=== PATIENT | female | born 1935 | race Caucasian/White ===

== ENCOUNTER 2019-08-12 12:34 | Emergency (ER) | payer BC, MEDICARE ==
[~2019-08-12] VITALS: Ht 170.2 cm; Wt 62.0 kg
[2019-08-12 12:44] VITALS: BP 153/69
[2019-08-12] MEDS ORDERED: normal saline 1000ML IV soln IVB ONE (13:25)
[2019-08-12 14:38] LABS: BASOPHILS # (AUTO) 0.1 X10'3 (0-0.2); BASOPHILS % (AUTO) 0.9 % (0-1); EOSINOPHILS # (AUTO) 0.1 X10'3 (0-0.9); EOSINOPHILS % (AUTO) 1.5 % (0-6); HEMATOCRIT 38.2 % (35.0-45.0); HEMOGLOBIN 12.8 g/dl (12.0-16.0); LYMPHOCYTES % (AUTO) 10.2 % (21-51); MEAN CORPUSCULAR HEMOGLOBIN 32.4 PG (27.0-31.0); MEAN CORPUSCULAR HGB CONC 33.6 g/dL (33.0-36.5); MEAN CORPUSCULAR VOLUME 96.6 FL (78-98); MEAN PLATELET VOLUME 8.8 FL (7.4-10.4); MONOCYTES # (AUTO) 0.7 X10'3 (0-0.9); MONOCYTES % (AUTO) 6.9 % (2-12); NEUTROPHILS # (AUTO) 7.9 X10'3 (1.8-7.7); NEUTROPHILS % (AUTO) 80.5 % (42-75); PLATELET COUNT 280 X10'3 (140-440); RED BLOOD COUNT 3.95 X10'6 (4.20-5.60); RED CELL DISTRIBUTION WIDTH 13.6 % (11.5-14.5); WHITE BLOOD COUNT 9.8 X10'3 (4.5-11.0)
[2019-08-12 14:46] LABS: CLARITY,URINE SLIGHTLY CLOUDY (Clear); COLOR,URINE YELLOW (Yellow); GLUCOSE, URINE NEGATIVE (Neg); KETONES,URINE 40 mg/dl (Neg); LEUKOCYTE ESTERASE ,URINE TRACE (Neg); NITRITES, URINE POSITIVE (Neg); OCCULT BLOOD,URINE NEGATIVE (Neg); PH,URINE 6.5 (4.8-8.0); PROTEIN,URINE NEGATIVE (Neg)
[2019-08-12 14:50] LABS: UA COLLECTION TYPE STRAIGHT CATH
[2019-08-12 14:51] LABS: ALANINE AMINOTRANSFERASE 18 U/L (12-78); ALBUMIN 3.3 G/DL (3.4-5.0); ALBUMIN/GLOBULIN RATIO 0.9 (1.1-1.5); ALKALINE PHOSPHATASE 70 IU/L (46-116); ANION GAP 11 (8-16); ASPARTATE AMINO TRANSFERASE 15 U/L (10-37); BILIRUBIN,TOTAL 0.7 MG/DL (0.1-1.0); BLOOD UREA NITROGEN 24 MG/DL (7-18); BUN/CREATININE RATIO 21.4 (6.6-38.0); CHLORIDE 107 MMOL/L (99-107); CREATININE 1.12 MG/DL (0.40-0.90); GLUCOSE 72 MG/DL (70-104); POTASSIUM 3.7 MMOL/L (3.5-5.1); SODIUM 145 MMOL/L (135-145); TOTAL CARBON DIOXIDE 26.6 MMOL/L (24-32); TOTAL PROTEIN 6.9 G/DL (6.4-8.2); eGFR 46 ML/MIN
[2019-08-12 14:53] LABS: CALCIUM 12.1 MG/DL (8.5-10.1); MUCUS STRANDS MANY /LPF (Neg); SQUAMOUS EPITHELIAL CELL,UR MANY /LPF (FEW)
[2019-08-12 14:54] LABS: TRANSITIONAL EPI CELLS,URINE FEW /HPF
[2019-08-12 14:55] LABS: RBC,URINE 0-2 /HPF (0-2)
[2019-08-12 14:56] LABS: AMORPHOUS URATES 1+; BACTERIA,URINE 3+ /HPF (Neg); WBC CLUMPS,URINE FEW /HPF (NEGATIVE)
[2019-08-12] MEDS ORDERED: CEPH250T PO (14:57)
--- NOTE | 2019-08-12 15:06 | NUR ---
contacting [facility] for transport to [facility].
== END 2019-08-12 16:51 ==
LOC: ER 12:34
DX: N39.0 Urinary tract infection, site not specified (principal); E86.0 Dehydration; R41.82 Altered mental status, unspecified; F31.9 Bipolar disorder, unspecified; Z79.899 Other long term (current) drug therapy
CPT/HCPCS: 36415; 80053; 81001; 85025; 87088; 96360; 96361; 99284; J7030; 87077; 87186

== ENCOUNTER 2019-08-16 15:08 | Inpatient (IN) | payer BC ==
[~2019-08-16] VITALS: Ht 165.1 cm; Wt 65.0 kg
[~2019-08-16 15:08] MED LIST: CEPH250T PO
[2019-08-16] MEDS ORDERED: morphine 4 MG/ML inj SYRINge IV ONE (15:15)
[2019-08-16 15:49] LABS: BASOPHILS # (AUTO) 0.1 X10'3 (0-0.2); BASOPHILS % (AUTO) 0.4 % (0-1); EOSINOPHILS # (AUTO) 0.3 X10'3 (0-0.9); EOSINOPHILS % (AUTO) 1.9 % (0-6); HEMOGLOBIN 12.7 g/dl (12.0-16.0); LYMPHOCYTES # (AUTO) 0.8 X10'3 (1.1-4.8); LYMPHOCYTES % (AUTO) 5.6 % (21-51); MEAN CORPUSCULAR HEMOGLOBIN 31.6 PG (27.0-31.0); MEAN CORPUSCULAR HGB CONC 33.3 g/dL (33.0-36.5); MEAN CORPUSCULAR VOLUME 94.9 FL (78-98); MEAN PLATELET VOLUME 9.3 FL (7.4-10.4); MONOCYTES # (AUTO) 1.1 X10'3 (0-0.9); MONOCYTES % (AUTO) 7.5 % (2-12); NEUTROPHILS # (AUTO) 11.9 X10'3 (1.8-7.7); NEUTROPHILS % (AUTO) 84.6 % (42-75); PLATELET COUNT 218 X10'3 (140-440); RED BLOOD COUNT 4.01 X10'6 (4.20-5.60); RED CELL DISTRIBUTION WIDTH 13.9 % (11.5-14.5); WHITE BLOOD COUNT 14.1 X10'3 (4.5-11.0)
[2019-08-16 16:06] LABS: ALANINE AMINOTRANSFERASE 24 U/L (12-78); ALBUMIN 3.1 G/DL (3.4-5.0); ALBUMIN/GLOBULIN RATIO 0.9 (1.1-1.5); ALKALINE PHOSPHATASE 73 IU/L (46-116); ANION GAP 6 (8-16); ASPARTATE AMINO TRANSFERASE 16 U/L (10-37); BILIRUBIN,TOTAL 0.7 MG/DL (0.1-1.0); BLOOD UREA NITROGEN 17 MG/DL (7-18); BUN/CREATININE RATIO 18.3 (6.6-38.0); CALCIUM 11.6 MG/DL (8.5-10.1); CHLORIDE 111 MMOL/L (99-107); CREATININE 0.93 MG/DL (0.40-0.90); GLUCOSE 135 MG/DL (70-104); POTASSIUM 3.3 MMOL/L (3.5-5.1); SODIUM 147 MMOL/L (135-145); TOTAL CARBON DIOXIDE 30.1 MMOL/L (24-32); TOTAL PROTEIN 6.6 G/DL (6.4-8.2); eGFR 57 ML/MIN
[2019-08-16] MEDS ORDERED: CITA40TA17 PO (16:44)
[2019-08-16] MEDS ORDERED: LOSA100T57 PO (16:44)
[2019-08-16] MEDS ORDERED: TRAZ-256 PO (16:44)
[2019-08-16] MEDS ORDERED: AMLO5TAB16 PO (16:44)
[2019-08-16] MEDS ORDERED: OMEP40CA13 PO (16:44)
[2019-08-16] MEDS ORDERED: HYDR25TA4 PO (16:44)
[2019-08-16] MEDS ORDERED: PROP10TA10 PO (16:44)
[2019-08-16] MEDS ORDERED: RIVA20TA PO (16:44)
[2019-08-16] MEDS ORDERED: POTA10TA10 PO (16:44)
[2019-08-16] MEDS ORDERED: morphine 2 MG/ML inj. syringe IV PRN (17:15)
[2019-08-16] MEDS ORDERED: normal saline 1000ml 1,000 ML IV SCH (17:15)
[2019-08-16] MEDS ORDERED: magnesium hydroxide 30ml (MOM) UD suspension PO PRN (17:15)
[2019-08-16] MEDS ORDERED: ondansetron/PF 4mg/2ml inj IV PRN (17:15)
[2019-08-16] MEDS ORDERED: mag hydrox/Alum hydrox/simeth 30ml oral suspension PO PRN (17:15)
[2019-08-16] MEDS ORDERED: acetaminophen 325mg tablet PO PRN (17:15)
[2019-08-16 17:59] LABS: CLARITY,URINE SLIGHTLY CLOUDY (Clear); COLOR,URINE YELLOW (Yellow); GLUCOSE, URINE NEGATIVE (Neg); KETONES,URINE NEGATIVE (Neg); LEUKOCYTE ESTERASE ,URINE NEGATIVE (Neg); NITRITES, URINE POSITIVE (Neg); OCCULT BLOOD,URINE NEGATIVE (Neg); PROTEIN,URINE NEGATIVE (Neg)
[2019-08-16 18:04] LABS: UA COLLECTION TYPE FOLEY CATH
[2019-08-16 18:05] LABS: BACTERIA,URINE 1+ /HPF (Neg); RBC,URINE NONE SEEN /HPF (0-2); SQUAMOUS EPITHELIAL CELL,UR FEW /LPF (FEW); TRANSITIONAL EPI CELLS,URINE FEW /HPF
[2019-08-16] MEDS ORDERED: ondansetron 4mg rapidly disintigrating tab PO PRN (18:15)
[2019-08-16] MEDS: propranolol 10mg tablet PO SCH (20:54)
[2019-08-16] MEDS: traZODone 50mg tablet PO SCH (21:00)
[2019-08-16 22:40] VITALS: BP 157/82
--- NOTE | 2019-08-16 22:40 | NUR ---
PT ARRIVED FROM ER. AND HAS BEEN ORIENTED TO THE ROOM. RECEIVED REPORT FROM SANTINO CONNOLLY PRIOR TO PT'S ARRIVAL.
--- NOTE | 2019-08-16 23:31 | NUR ---
PAGER ID: [phone] MESSAGE: [id number] NATALI LYNN 84 HIP FX, HAS LOW POTTASIUM 3.3. AND NOT ON REPLACEMENT PROTOCOL. CAN SHE BE ON IT? THANK YOU. #[id number] FORTINO
[2019-08-16] MEDS ORDERED: magnesium Cl slow-release 64mg tablet PO PRN (23:35)
[2019-08-16] MEDS ORDERED: magnesium 4gm in 100ml NS 100 ML IV PRN (23:35)
[2019-08-16] MEDS ORDERED: potassium Cl 20 mEq SR tablet PO PRN ×2 (23:35)
[2019-08-16] MEDS: potassium CL 10mEq/100ml bag 100 ML IV PRN (23:52)
[2019-08-17] VITALS (22 sets, daily range): BP systolic 123–183; BP diastolic 46–110
[2019-08-17] MEDS: potassium CL 10mEq/100ml bag 100 ML IV PRN ×2 (01:47→03:11)
--- NOTE | 2019-08-17 06:00 | NUR ---
Patient in room ORTHO 4009. I have received report from SANTINO Haley and had the opportunity to ask questions and assume patient care.
--- NOTE | 2019-08-17 06:18 | NUR ---
Problems reprioritized. Patient report given, questions answered & plan of care reviewed with SANTINO CALIX AND SANTINO FELIPE.
--- NOTE | 2019-08-17 07:21 | NUR ---
i have spoken with Son Jarrett, [employer]. He is rude, cursing at me, wanting to take his mother home. Informed Dr. Strickland and asked patient if she wanted to leave Against Medical advice, patient is A&Ox4 stated no. Stated "She is going to wait until her son Naeem calls, due to Jarrett being on the sauce". She stated she can not make a decision right now. Educated patient a few more tests needs to be done, and the next 24hrs were very critical. Addendum: 08/17/19 at 0804 by Yolanda Singh RN WRONG PATIENT
[2019-08-17] MEDS: pantoprazole 40mg Tablet.DR PO SCH (08:00)
[2019-08-17] MEDS: losartan 50mg tablet PO SCH (08:00)
[2019-08-17] MEDS: amLODIPine 5mg tablet PO SCH (08:00)
[2019-08-17] MEDS: HYDROchlorothiazide 25mg tablet PO SCH (08:00)
[2019-08-17] MEDS: citalopram 20mg tablet PO SCH (08:00)
[2019-08-17] MEDS: propranolol 10mg tablet PO SCH ×2 (08:00→20:00)
[2019-08-17] MEDS: potassium chloride 10mEq ER tablet PO SCH (08:00)
[2019-08-17 08:33] LABS: BASOPHILS # (AUTO) 0.1 X10'3 (0-0.2); BASOPHILS % (AUTO) 0.5 % (0-1); EOSINOPHILS # (AUTO) 0.6 X10'3 (0-0.9); EOSINOPHILS % (AUTO) 4.3 % (0-6); HEMATOCRIT 38.8 % (35.0-45.0); HEMOGLOBIN 12.9 g/dl (12.0-16.0); LYMPHOCYTES # (AUTO) 1.2 X10'3 (1.1-4.8); LYMPHOCYTES % (AUTO) 8.7 % (21-51); MEAN CORPUSCULAR HEMOGLOBIN 32.1 PG (27.0-31.0); MEAN CORPUSCULAR HGB CONC 33.3 g/dL (33.0-36.5); MEAN CORPUSCULAR VOLUME 96.7 FL (78-98); MEAN PLATELET VOLUME 9.6 FL (7.4-10.4); MONOCYTES # (AUTO) 1.1 X10'3 (0-0.9); MONOCYTES % (AUTO) 8.2 % (2-12); NEUTROPHILS # (AUTO) 10.5 X10'3 (1.8-7.7); NEUTROPHILS % (AUTO) 78.3 % (42-75); PLATELET COUNT 199 X10'3 (140-440); RED BLOOD COUNT 4.01 X10'6 (4.20-5.60); RED CELL DISTRIBUTION WIDTH 13.9 % (11.5-14.5); WHITE BLOOD COUNT 13.4 X10'3 (4.5-11.0)
[2019-08-17 08:42] LABS: ALBUMIN 2.9 G/DL (3.4-5.0); ANION GAP 4 (8-16); BLOOD UREA NITROGEN 16 MG/DL (7-18); CALCIUM 11.3 MG/DL (8.5-10.1); CHLORIDE 114 MMOL/L (99-107); GLUCOSE 89 MG/DL (70-104); POTASSIUM 4.3 MMOL/L (3.5-5.1); SODIUM 148 MMOL/L (135-145); TOTAL CARBON DIOXIDE 30.5 MMOL/L (24-32); eGFR 68 ML/MIN
--- NOTE | 2019-08-17 09:17 | NUR ---
Attempted to give patient morning medications per order, patient unable to swallow sips of water without falling back asleep. Unsafe due to swallowing ability.
[2019-08-17] MEDS ORDERED: famotidine/PF 10 mg/ml inj IV ONE (10:35)
[2019-08-17] MEDS ORDERED: LORazepam 2 mg/ml vial IV PRN (12:50)
[2019-08-17] MEDS ORDERED: ceFAZolin 1GM/D5W- ADD-VANTAGE 50 ML IV ONE (13:00)
[2019-08-17] MEDS ORDERED: VANCOMYCIN 1,500MG inj. 1,500 MG in normal saline 500ml IV soln 500 ML IV ONE (13:00)
[2019-08-17] MEDS ORDERED: sevoflurane 250ml liquid IH ONE (15:24)
[2019-08-17] MEDS ORDERED: meperidine/PF 25mg/ml syringe IV PRN ×3 (15:25)
[2019-08-17] MEDS ORDERED: morphine 2 MG/ML inj. syringe IV PRN (15:25)
[2019-08-17] MEDS ORDERED: ondansetron/PF 4mg/2ml inj IV PRN (15:25)
[2019-08-17] MEDS ORDERED: ringers solution, lacted 1,000 ML IV SCH (15:25)
[2019-08-17] MEDS ORDERED: proCHLORperazine 10 MG/2 ml inj IV PRN (15:25)
[2019-08-17] MEDS ORDERED: morphine 4 MG/ML inj SYRINge IV PRN (15:25)
[2019-08-17] MEDS ORDERED: fentaNYL/PF 50MCG/1 ML 2ML syringe ONE (15:28)
[2019-08-17] MEDS ORDERED: propofol inj 20 ML IV ONE (15:58)
[2019-08-17] MEDS ORDERED: traMADol 50MG tablet PO PRN (16:05)
--- NOTE | 2019-08-17 16:09 | NUR ---
Received from OR via BED, accompanied by Anesthesiologist DR ZAVALA and report given by Anesthesiologist. PT VERY DROWSY, ORAL AIRWAY PLACED, RIGHT HIP W/SMALL TELFA DRSG CDI, BELL CATHETER TO GRAVITY DRAINAGE W/DARK YELLOW URINE IN DRAINAGE BAG. Addendum: 08/17/19 at 1714 by Ema Driscoll RN Amended: Links added.
--- NOTE | 2019-08-17 17:19 | NUR ---
Patient in room ORTHO 4009. I have received report from Ema DE, from the recovery room and had the opportunity to ask questions and assume patient care.
--- NOTE | 2019-08-17 17:49 | NUR ---
Report called to receiving nurse. Transferred via BED, NO Belongings, PT APPEARS COMFORTABLE, NO S/S OF DISTRESS/DISCOMFORT. Special Issues communicated to receiving nurse. YES. Addendum: 08/17/19 at 1820 by Ema Driscoll RN Amended: Links added.
--- NOTE | 2019-08-17 17:59 | NUR ---
Patient arrived to the floor at 1755. The patient is resting comfortably in no apparent distress. Vital signs are stable, BP 158/74 HR 84 O2 93 on 2l via nasal cannula. Island dressing is in place on the right hip, it is intact with a dime sized trace amount of drainage visible. Dorsalis pedis pulses are palpated at normal strength bilaterally. Capillary refill is less than 3 seconds. Report given to Sudha DE, questions were welcomed and answered accordingly.
[2019-08-17] MEDS: traZODone 50mg tablet PO SCH (21:00)
[2019-08-17] MEDS: morphine 2 MG/ML inj. syringe IV PRN (21:16)
[2019-08-17] MEDS: ceFAZolin 2gm in dextrose, iso 50 ML IV SCH (23:10)
[2019-08-17] MEDS: sodium chloride 0.45% 1,000 ML IV SCH (23:15)
[2019-08-18 02:00] VITALS: BP 151/79
[2019-08-18] MEDS: morphine 2 MG/ML inj. syringe IV PRN (05:28)
[2019-08-18 06:00] VITALS: BP 177/75
--- NOTE | 2019-08-18 06:00 | NUR ---
Patient in room ORTHO 4009. I have received report from Sudha and had the opportunity to ask questions and assume patient care.
--- NOTE | 2019-08-18 06:33 | NUR ---
Problems reprioritized. Patient report given, questions answered & plan of care reviewed with SANTINO TURPIN AND SANTINO FELIPE.
--- NOTE | 2019-08-18 06:35 | NUR ---
Patient in room ORTHO 4009. I have received report from SANTINO Haley and had the opportunity to ask questions and assume patient care.
[2019-08-18 07:34] LABS: BASOPHILS # (AUTO) 0.1 X10'3 (0-0.2); BASOPHILS % (AUTO) 0.7 % (0-1); EOSINOPHILS # (AUTO) 0.4 X10'3 (0-0.9); EOSINOPHILS % (AUTO) 2.5 % (0-6); HEMATOCRIT 37.5 % (35.0-45.0); HEMOGLOBIN 12.5 g/dl (12.0-16.0); LYMPHOCYTES # (AUTO) 0.8 X10'3 (1.1-4.8); MEAN CORPUSCULAR HEMOGLOBIN 31.8 PG (27.0-31.0); MEAN CORPUSCULAR HGB CONC 33.2 g/dL (33.0-36.5); MEAN CORPUSCULAR VOLUME 95.8 FL (78-98); MEAN PLATELET VOLUME 9.3 FL (7.4-10.4); MONOCYTES # (AUTO) 1.4 X10'3 (0-0.9); MONOCYTES % (AUTO) 8.6 % (2-12); NEUTROPHILS # (AUTO) 13.3 X10'3 (1.8-7.7); NEUTROPHILS % (AUTO) 83.2 % (42-75); PLATELET COUNT 236 X10'3 (140-440); RED BLOOD COUNT 3.92 X10'6 (4.20-5.60); RED CELL DISTRIBUTION WIDTH 13.8 % (11.5-14.5)
[2019-08-18 07:58] LABS: ALBUMIN 2.9 G/DL (3.4-5.0); ANION GAP 7 (8-16); BLOOD UREA NITROGEN 13 MG/DL (7-18); BUN/CREATININE RATIO 11.7 (6.6-38.0); CALCIUM 10.9 MG/DL (8.5-10.1); CHLORIDE 112 MMOL/L (99-107); CREATININE 1.11 MG/DL (0.40-0.90); GLUCOSE 114 MG/DL (70-104); POTASSIUM 3.9 MMOL/L (3.5-5.1); SODIUM 149 MMOL/L (135-145); TOTAL CARBON DIOXIDE 29.6 MMOL/L (24-32); eGFR 47 ML/MIN
[2019-08-18] MEDS: losartan 50mg tablet PO SCH (08:00)
[2019-08-18] MEDS: potassium chloride 10mEq ER tablet PO SCH (08:00)
[2019-08-18] MEDS: citalopram 20mg tablet PO SCH (08:00)
[2019-08-18] MEDS: propranolol 10mg tablet PO SCH ×2 (08:00→20:00)
[2019-08-18] MEDS: amLODIPine 5mg tablet PO SCH (08:00)
[2019-08-18] MEDS: HYDROchlorothiazide 25mg tablet PO SCH (08:00)
[2019-08-18] MEDS: pantoprazole 40mg Tablet.DR PO SCH (08:00)
[2019-08-18] MEDS: ceFAZolin 2gm in dextrose, iso 50 ML IV SCH ×2 (08:10→15:36)
[2019-08-18] MEDS ORDERED: RISP0.5T74 PO (09:36)
[2019-08-18] MEDS ORDERED: RIVA20TA PO (09:36)
[2019-08-18] MEDS ORDERED: BISA10SU60 RC (09:36)
[2019-08-18] MEDS ORDERED: CHOL20004 PO (09:36)
[2019-08-18] MEDS ORDERED: DOCU100C40 PO (09:36)
[2019-08-18] MEDS ORDERED: PANT20TA3 PO (09:36)
[2019-08-18] MEDS ORDERED: TRAM50TA2 PO (09:36)
[2019-08-18] MEDS ORDERED: LIT300C PO (09:36)
[2019-08-18] MEDS ORDERED: VENL75CA61 PO (09:36)
[2019-08-18] MEDS ORDERED: NA P133E4 RC (09:36)
[2019-08-18 10:00] VITALS: BP 115/86
--- NOTE | 2019-08-18 10:30 | NUR ---
Reviewed home med rec with Hospitalist.
[2019-08-18] MEDS ORDERED: CefTRIAXone/D5W-Rocephin 1gm 50 ML IV SCH (12:30)
[2019-08-18] MEDS: sodium chloride 0.45% 1,000 ML IV SCH ×2 (13:58→20:10)
[2019-08-18] MEDS: levoFLOXACIN-Levaquin 750MG/D5 150 ML IV SCH (13:58)
[2019-08-18] MEDS: heparin, porcine 5000 units/ml vial SQ SCH (15:46)
[2019-08-18 18:00] VITALS: BP 147/72
[2019-08-18] MEDS ORDERED: rivaroxaban 20mg tablet PO SCH (18:00)
--- NOTE | 2019-08-18 18:20 | NUR ---
Problems reprioritized. Patient report given, questions answered & plan of care reviewed with Cristina DE.
--- NOTE | 2019-08-18 18:30 | NUR ---
RECEIVED REPORT FROM PAPI DE AND ASSUMED PATIENT CARE
[2019-08-18] MEDS: traZODone 50mg tablet PO SCH (21:00)
[2019-08-18 22:00] VITALS: BP 174/73
[2019-08-19] MEDS: ceFAZolin 2gm in dextrose, iso 50 ML IV SCH
[2019-08-19] MEDS: heparin, porcine 5000 units/ml vial SQ SCH ×3 (00:29→16:20)
[2019-08-19] MEDS: morphine 2 MG/ML inj. syringe IV PRN (05:52)
[2019-08-19 06:00] VITALS: BP 144/86
--- NOTE | 2019-08-19 06:00 | NUR ---
Problems reprioritized. Patient report given, questions answered & plan of care reviewed with Ceiclia.
--- NOTE | 2019-08-19 06:00 | NUR ---
Patient in room ORTHO 4009. I have received report from Cristina and had the opportunity to ask questions and assume patient care.
[2019-08-19 07:38] LABS: BASOPHILS # (AUTO) 0.1 X10'3 (0-0.2); BASOPHILS % (AUTO) 0.8 % (0-1); EOSINOPHILS # (AUTO) 0.2 X10'3 (0-0.9); EOSINOPHILS % (AUTO) 1.9 % (0-6); HEMATOCRIT 32.3 % (35.0-45.0); HEMOGLOBIN 10.9 g/dl (12.0-16.0); LYMPHOCYTES # (AUTO) 0.9 X10'3 (1.1-4.8); LYMPHOCYTES % (AUTO) 7.9 % (21-51); MEAN CORPUSCULAR HGB CONC 33.8 g/dL (33.0-36.5); MEAN CORPUSCULAR VOLUME 94.7 FL (78-98); MEAN PLATELET VOLUME 10.2 FL (7.4-10.4); MONOCYTES # (AUTO) 1.2 X10'3 (0-0.9); NEUTROPHILS # (AUTO) 9.3 X10'3 (1.8-7.7); NEUTROPHILS % (AUTO) 79.4 % (42-75); PLATELET COUNT 234 X10'3 (140-440); RED BLOOD COUNT 3.41 X10'6 (4.20-5.60); RED CELL DISTRIBUTION WIDTH 13.2 % (11.5-14.5); WHITE BLOOD COUNT 11.7 X10'3 (4.5-11.0)
[2019-08-19 07:53] LABS: ALBUMIN 2.4 G/DL (3.4-5.0); ANION GAP 8 (8-16); BLOOD UREA NITROGEN 14 MG/DL (7-18); BUN/CREATININE RATIO 16.3 (6.6-38.0); CHLORIDE 111 MMOL/L (99-107); CREATININE 0.86 MG/DL (0.40-0.90); GLUCOSE 87 MG/DL (70-104); SODIUM 145 MMOL/L (135-145); eGFR 63 ML/MIN
[2019-08-19 07:58] LABS: CALCIUM 10.3 MG/DL (8.5-10.1)
[2019-08-19] MEDS: potassium chloride 10mEq ER tablet PO SCH (08:00)
[2019-08-19] MEDS: amLODIPine 5mg tablet PO SCH (08:00)
[2019-08-19] MEDS: pantoprazole 40mg Tablet.DR PO SCH (08:00)
[2019-08-19] MEDS: propranolol 10mg tablet PO SCH ×2 (08:00→20:00)
[2019-08-19] MEDS: losartan 50mg tablet PO SCH (08:00)
[2019-08-19] MEDS: HYDROchlorothiazide 25mg tablet PO SCH (08:00)
[2019-08-19] MEDS: citalopram 20mg tablet PO SCH (08:00)
[2019-08-19 08:05] LABS: POTASSIUM 2.6 MMOL/L (3.5-5.1)
--- NOTE | 2019-08-19 08:29 | NUR ---
Received message re: critical potassium of 2.6, will page hospitalist
--- NOTE | 2019-08-19 08:32 | NUR ---
PAGER ID: [phone] MESSAGE: Good morning, Nohemi on neuro, critical potassium of 2.6 for Ms. Montes in 0911B, will replace per protocol
[2019-08-19] MEDS: levoFLOXACIN-Levaquin 750MG/D5 150 ML IV SCH (08:38)
[2019-08-19] MEDS: potassium CL 10mEq/100ml bag 100 ML IV PRN ×8 (10:31→21:31)
[2019-08-19] MEDS: sodium chloride 0.45% 1,000 ML IV SCH (15:13)
[2019-08-19 18:00] VITALS: BP 154/69
[2019-08-19] MEDS ORDERED: traMADol 50MG tablet PO PRN (18:20)
--- NOTE | 2019-08-19 18:30 | NUR ---
Problems reprioritized. Patient report given, questions answered & plan of care reviewed with Olivia.
--- NOTE | 2019-08-19 18:41 | NUR ---
Patient in room ORTHO 4009. I have received report from Nohemi DE and had the opportunity to ask questions and assume patient care.
[2019-08-19] MEDS: lactobacillus rhamnosus 10,000 MMU CELLS/CAPSULE PO SCH (20:00)
[2019-08-19] MEDS: traZODone 50mg tablet PO SCH (20:34)
[2019-08-19 22:00] VITALS: BP 167/77
[2019-08-20] MEDS: heparin, porcine 5000 units/ml vial SQ SCH ×3 (00:17→16:27)
[2019-08-20 02:57] LABS: BASOPHILS % (AUTO) 0.6 % (0-1); EOSINOPHILS # (AUTO) 0.2 X10'3 (0-0.9); EOSINOPHILS % (AUTO) 2.8 % (0-6); HEMATOCRIT 29.6 % (35.0-45.0); HEMOGLOBIN 10.3 g/dl (12.0-16.0); LYMPHOCYTES # (AUTO) 0.7 X10'3 (1.1-4.8); LYMPHOCYTES % (AUTO) 9.3 % (21-51); MEAN CORPUSCULAR HEMOGLOBIN 32.7 PG (27.0-31.0); MEAN CORPUSCULAR HGB CONC 34.7 g/dL (33.0-36.5); MEAN CORPUSCULAR VOLUME 94.3 FL (78-98); MEAN PLATELET VOLUME 9.4 FL (7.4-10.4); MONOCYTES # (AUTO) 0.9 X10'3 (0-0.9); MONOCYTES % (AUTO) 11.4 % (2-12); NEUTROPHILS # (AUTO) 5.9 X10'3 (1.8-7.7); NEUTROPHILS % (AUTO) 75.9 % (42-75); PLATELET COUNT 216 X10'3 (140-440); RED BLOOD COUNT 3.14 X10'6 (4.20-5.60); RED CELL DISTRIBUTION WIDTH 13.6 % (11.5-14.5); WHITE BLOOD COUNT 7.8 X10'3 (4.5-11.0)
[2019-08-20 03:08] LABS: ALBUMIN 2.2 G/DL (3.4-5.0); ANION GAP 9 (8-16); BLOOD UREA NITROGEN 15 MG/DL (7-18); BUN/CREATININE RATIO 17.6 (6.6-38.0); CALCIUM 10.3 MG/DL (8.5-10.1); CHLORIDE 109 MMOL/L (99-107); CREATININE 0.85 MG/DL (0.40-0.90); GLUCOSE 75 MG/DL (70-104); POTASSIUM 3.4 MMOL/L (3.5-5.1); SODIUM 142 MMOL/L (135-145); TOTAL CARBON DIOXIDE 24.1 MMOL/L (24-32); eGFR 64 ML/MIN
[2019-08-20 06:00] VITALS: BP 157/66
--- NOTE | 2019-08-20 06:10 | NUR ---
Patient in room ORTHO 4009. I have received report from [facility] and had the opportunity to ask questions and assume patient care.
--- NOTE | 2019-08-20 06:19 | NUR ---
Problems reprioritized. Patient report given, questions answered & plan of care reviewed with Nohemi DE.
[2019-08-20] MEDS: potassium chloride 10mEq ER tablet PO SCH (08:00)
[2019-08-20] MEDS: HYDROchlorothiazide 25mg tablet PO SCH (08:00)
[2019-08-20] MEDS: pantoprazole 40mg Tablet.DR PO SCH (08:00)
[2019-08-20] MEDS: citalopram 20mg tablet PO SCH (08:00)
[2019-08-20] MEDS: amLODIPine 5mg tablet PO SCH (08:00)
[2019-08-20] MEDS: losartan 50mg tablet PO SCH (08:00)
[2019-08-20] MEDS: propranolol 10mg tablet PO SCH ×2 (08:00→19:29)
[2019-08-20] MEDS: lactobacillus rhamnosus 10,000 MMU CELLS/CAPSULE PO SCH ×2 (08:00→19:32)
[2019-08-20] MEDS: levoFLOXACIN-Levaquin 750MG/D5 150 ML IV SCH (08:01)
[2019-08-20] MEDS: sodium chloride 0.45% 1,000 ML IV SCH (10:28)
[2019-08-20] MEDS ORDERED: potassium Cl 10 mEq/100mL bag IV ONE ×2 (14:10→17:40)
--- NOTE | 2019-08-20 16:39 | NUR ---
Initial: patient is s/p close reduction percutaneous pinning right hip on 08/19. This patient did not pass swallow eval until this morning, previously RECEIVING OPERATOR reports patient to have inconsistent swallow d/t cognitive level. This morning per RECEIVING OPERATOR swallowing well this am however is refusing meals and meds. Spoke with bedside RN, reports that pt is on a regular diet and OK with MD to give whatever she wants, patient was brought a chocolate milkshake per request however when it arrived she refused that as well. Per H&P pt admitted with [facility] after a fall and sustained a right hip fracture. H/o bipolar, HTN, GERD, dementia. Recommended to RN to continue to offer and encourage food. May discharge back to [facility] tomorrow. Pt is constipated, no BM since admission, has prn medication. Will follow. Recommend: 1. continue regular diet 2. encouraged PO intake and honor food preferences 3. bowel care as needed 4. weight per rx Addendum: 08/20/19 at [address] Amended: Links added.
--- NOTE | 2019-08-20 16:49 | NUR ---
Patient has been mostly noncompliant with plan of care. Pt is much more verbal, able to respond appropriately and voice her needs. Medications have been reviewed with pt, yet she declines to take any of them. Pt's BP has been high, pt was shown her vitals and declines medications to bring her BP down. Pt was able to hold and take a large drink of water with speech therapist today and agreed to a chocolate milkshake. Pt only took a small drink of the shake. Pt has shown much improvement but will only be compliant with what she chooses.
[2019-08-20 18:00] VITALS: BP 182/76
--- NOTE | 2019-08-20 18:09 | NUR ---
Problems reprioritized. Patient report given, questions answered & plan of care reviewed with Olivia.
--- NOTE | 2019-08-20 18:45 | NUR ---
Patient in room ORTHO 4009. I have received report from Nohemi DE and had the opportunity to ask questions and assume patient care.
[2019-08-20] MEDS: traZODone 50mg tablet PO SCH (19:32)
[2019-08-20 22:00] VITALS: BP 156/57
[2019-08-21] MEDS: heparin, porcine 5000 units/ml vial SQ SCH ×3 (00:15→16:00)
[2019-08-21] MEDS: sodium chloride 0.45% 1,000 ML IV SCH ×2 (01:46→14:50)
[2019-08-21 06:00] VITALS: BP 169/66
--- NOTE | 2019-08-21 06:00 | NUR ---
Patient in room ORTHO 4009. I have received report from Olivia DE and had the opportunity to ask questions and assume patient care.
--- NOTE | 2019-08-21 06:34 | NUR ---
Problems reprioritized. Patient report given, questions answered & plan of care reviewed with Kristi DE.
[2019-08-21 07:09] LABS: BASOPHILS # (AUTO) 0.1 X10'3 (0-0.2); BASOPHILS % (AUTO) 0.9 % (0-1); EOSINOPHILS # (AUTO) 0.3 X10'3 (0-0.9); EOSINOPHILS % (AUTO) 5.9 % (0-6); HEMATOCRIT 28.7 % (35.0-45.0); HEMOGLOBIN 9.8 g/dl (12.0-16.0); LYMPHOCYTES % (AUTO) 17.4 % (21-51); MEAN CORPUSCULAR HEMOGLOBIN 32.4 PG (27.0-31.0); MEAN CORPUSCULAR HGB CONC 34.1 g/dL (33.0-36.5); MEAN CORPUSCULAR VOLUME 94.9 FL (78-98); MEAN PLATELET VOLUME 9.2 FL (7.4-10.4); MONOCYTES # (AUTO) 0.9 X10'3 (0-0.9); MONOCYTES % (AUTO) 14.7 % (2-12); NEUTROPHILS # (AUTO) 3.6 X10'3 (1.8-7.7); NEUTROPHILS % (AUTO) 61.1 % (42-75); PLATELET COUNT 240 X10'3 (140-440); RED BLOOD COUNT 3.02 X10'6 (4.20-5.60); RED CELL DISTRIBUTION WIDTH 13.5 % (11.5-14.5); WHITE BLOOD COUNT 5.9 X10'3 (4.5-11.0)
[2019-08-21 07:11] LABS: ALBUMIN 2.2 G/DL (3.4-5.0); ANION GAP 7 (8-16); BLOOD UREA NITROGEN 14 MG/DL (7-18); BUN/CREATININE RATIO 17.9 (6.6-38.0); CALCIUM 9.5 MG/DL (8.5-10.1); CHLORIDE 113 MMOL/L (99-107); CREATININE 0.78 MG/DL (0.40-0.90); GLUCOSE 69 MG/DL (70-104); POTASSIUM 3.2 MMOL/L (3.5-5.1); SODIUM 145 MMOL/L (135-145); TOTAL CARBON DIOXIDE 24.8 MMOL/L (24-32); eGFR 70 ML/MIN
[2019-08-21] MEDS: pantoprazole 40mg Tablet.DR PO SCH (08:00)
[2019-08-21] MEDS: citalopram 20mg tablet PO SCH (08:00)
[2019-08-21] MEDS: lactobacillus rhamnosus 10,000 MMU CELLS/CAPSULE PO SCH ×2 (08:00→20:00)
[2019-08-21] MEDS: potassium chloride 10mEq ER tablet PO SCH (08:00)
[2019-08-21] MEDS: propranolol 10mg tablet PO SCH ×2 (08:00→21:45)
[2019-08-21] MEDS: losartan 50mg tablet PO SCH (08:00)
[2019-08-21] MEDS: HYDROchlorothiazide 25mg tablet PO SCH (08:00)
[2019-08-21] MEDS: amLODIPine 5mg tablet PO SCH (08:00)
--- NOTE | 2019-08-21 08:00 | NUR ---
Patient refused all PO meds this morning but allowed me to hang her IV antibiotic up. Per NOC report she also refused all PO meds and PT also says she's been refusing to work with them as well. MD aware. No new orders. Patient likely to return to SNF today.
[2019-08-21] MEDS: levoFLOXACIN-Levaquin 750MG/D5 150 ML IV SCH (08:12)
[2019-08-21 11:00] VITALS: BP 152/63
--- NOTE | 2019-08-21 11:35 | NUR ---
PAGER ID: [phone] MESSAGE: [phone] Benjie Montes. No BM since admission. [facility]. Only has MOM ordered; pt refusing all PO meds. May I have Dulcolax suppository? Kristi [phone]
[2019-08-21] MEDS ORDERED: bisacodyl 10mg suppository rectal RC STA (11:50)
--- NOTE | 2019-08-21 16:04 | NUR ---
Patient refused heparin stating "It hurts my body too much." Patient also refused to be reconnected to IVF. Line was disconnected to work with PT.
[2019-08-21 18:00] VITALS: BP 163/88
--- NOTE | 2019-08-21 18:28 | NUR ---
Problems reprioritized. Patient report given, questions answered & plan of care reviewed with Antonia DE.
--- NOTE | 2019-08-21 19:11 | NUR ---
Patient in room ORTHO 4009. I have received report from NED DE and had the opportunity to ask questions and assume patient care.
[2019-08-21] MEDS: traZODone 50mg tablet PO SCH (21:45)
[2019-08-21 22:00] VITALS: BP 198/91
--- NOTE | 2019-08-21 23:03 | NUR ---
Received report from Antonia DE
[2019-08-22] MEDS: heparin, porcine 5000 units/ml vial SQ SCH ×2 (00:30→08:00)
[2019-08-22 06:00] VITALS: BP 118/65
--- NOTE | 2019-08-22 06:35 | NUR ---
Problems reprioritized. Patient report given, questions answered & plan of care reviewed with Traci DE.
[2019-08-22] MEDS: sodium chloride 0.45% 1,000 ML IV SCH (07:30)
[2019-08-22] MEDS: citalopram 20mg tablet PO SCH (08:00)
[2019-08-22] MEDS: pantoprazole 40mg Tablet.DR PO SCH (08:00)
[2019-08-22] MEDS: propranolol 10mg tablet PO SCH (08:00)
[2019-08-22] MEDS: lactobacillus rhamnosus 10,000 MMU CELLS/CAPSULE PO SCH (08:00)
[2019-08-22] MEDS: amLODIPine 5mg tablet PO SCH (08:00)
[2019-08-22] MEDS: HYDROchlorothiazide 25mg tablet PO SCH (08:00)
[2019-08-22] MEDS: potassium chloride 10mEq ER tablet PO SCH (08:00)
[2019-08-22] MEDS: losartan 50mg tablet PO SCH (08:00)
[2019-08-22 10:00] VITALS: BP 118/69
[2019-08-22] MEDS ORDERED: levoFLOXACIN 750MG TABLET PO SCH (11:00)
--- NOTE | 2019-08-22 13:08 | NUR ---
Андрей consult: B11; R hip surgical site s/p fx repair otherwise skin intact. Pt to return to care facility this afternoon per RN. Noted refusing most meals and all meds though AOx1 w/ dementia hx. Continues receiving encouragement during meals. Addendum: 08/22/19 at [address] Amended: Links added.
--- NOTE | 2019-08-22 14:40 | NUR ---
Patient is refusing her potassium pills. Along with her morning meds. I wrote out on piece of paper what I needed to do just incase she couldnt hear me and she still didnt respond. I asked the patient if she was done being in chair and she told me that she wanted to go to bed which confirmed to me she could hear me.
== END 2019-08-22 15:25 | DRG 481 ==
LOC: ER 15:08 → ED HOLD 17:15 → ORTHO 4S 22:55
PROVIDERS: ADMIT Family Medicine; ATTEND Family Medicine
PROC: 0QH634Z Insertion of Internal Fixation Device into Right Upper Femur, Percutaneous Approach (ICD-10-PCS; principal; 2019-08-17 15:24)
DX: S72.011A Unspecified intracapsular fracture of right femur, initial encounter for closed fracture (principal); N39.0 Urinary tract infection, site not specified; F03.90 Unspecified dementia, unspecified severity, without behavioral disturbance, psychotic disturbance, mood disturbance, and anxiety; F31.9 Bipolar disorder, unspecified; I10 Essential (primary) hypertension; K21.9 Gastro-esophageal reflux disease without esophagitis; R13.10 Dysphagia, unspecified; W18.39XA Other fall on same level, initial encounter; Z79.82 Long term (current) use of aspirin; Y93.89 Activity, other specified; Y92.89 Other specified places as the place of occurrence of the external cause; Y99.8 Other external cause status
CPT/HCPCS: 96374; 99285; Z7506; 36415; 70450; 71045; 73501; 73502; 74176; 76000; 80048; 80053; 80178; 81001; 82948; 85025; 85610; 86885; 86900; 86901; 87077; 87081; 87088; 87186; 92508; 92616; 93005; 97110; 97116; 97161; 97530; A4618; A6455; A7000; C1713; G0378; J0690; J1644; J1956; J2060; J2175; J2270; J2704; J3010; J3370; J3480; J3490; J7030; J7040; J7120

== ENCOUNTER 2019-08-26 20:34 | Inpatient (IN) | payer BC ==
[~2019-08-26] VITALS: Ht 167.6 cm; Wt 70.0 kg
[~2019-08-26 20:34] MED LIST changes: +AMLO5TAB16 PO; +BISA10SU60 RC; -CEPH250T PO; +CHOL20004 PO; +CITA40TA17 PO; +DOCU100C40 PO; +HYDR25TA4 PO; +LIT300C PO; +LOSA100T57 PO; +NA P133E4 RC; +OMEP40CA13 PO; +PANT20TA3 PO; +POTA10TA10 PO; +PROP10TA10 PO; +RISP0.5T74 PO; +RIVA20TA PO; +TRAM50TA2 PO; +TRAZ-256 PO; +VENL75CA61 PO
[2019-08-26] MEDS ORDERED: normal saline 1000ML IV soln IVB ONE ×2 (21:10→22:00)
[2019-08-26 21:31] LABS: BASOPHILS # (AUTO) 0.1 X10'3 (0-0.2); BASOPHILS % (AUTO) 0.7 % (0-1); EOSINOPHILS # (AUTO) 0.2 X10'3 (0-0.9); EOSINOPHILS % (AUTO) 1.4 % (0-6); HEMOGLOBIN 10.5 g/dl (12.0-16.0); LYMPHOCYTES % (AUTO) 6.5 % (21-51); MEAN CORPUSCULAR HEMOGLOBIN 31.5 PG (27.0-31.0); MEAN CORPUSCULAR HGB CONC 32.9 g/dL (33.0-36.5); MEAN CORPUSCULAR VOLUME 95.9 FL (78-98); MEAN PLATELET VOLUME 9.6 FL (7.4-10.4); MONOCYTES # (AUTO) 0.9 X10'3 (0-0.9); MONOCYTES % (AUTO) 6.4 % (2-12); NEUTROPHILS # (AUTO) 12.5 X10'3 (1.8-7.7); PLATELET COUNT 366 X10'3 (140-440); RED BLOOD COUNT 3.34 X10'6 (4.20-5.60); RED CELL DISTRIBUTION WIDTH 13.9 % (11.5-14.5); WHITE BLOOD COUNT 14.7 X10'3 (4.5-11.0)
[2019-08-26 21:36] LABS: ALANINE AMINOTRANSFERASE 18 U/L (12-78); ALBUMIN 2.6 G/DL (3.4-5.0); ALBUMIN/GLOBULIN RATIO 0.7 (1.1-1.5); ALKALINE PHOSPHATASE 75 IU/L (46-116); ANION GAP 7 (8-16); ASPARTATE AMINO TRANSFERASE 19 U/L (10-37); BILIRUBIN,TOTAL 0.9 MG/DL (0.1-1.0); BLOOD UREA NITROGEN 27 MG/DL (7-18); BUN/CREATININE RATIO 20.6 (6.6-38.0); CALCIUM 11.2 MG/DL (8.5-10.1); CHLORIDE 114 MMOL/L (99-107); CREATININE 1.31 MG/DL (0.40-0.90); GLUCOSE 77 MG/DL (70-104); LIPASE < 50 U/L (73-393); POTASSIUM 3.2 MMOL/L (3.5-5.1); SODIUM 150 MMOL/L (135-145); TOTAL CARBON DIOXIDE 29.1 MMOL/L (24-32); TOTAL PROTEIN 6.4 G/DL (6.4-8.2); eGFR 39 ML/MIN
[2019-08-26] MEDS ORDERED: levoFLOXACIN-Levaquin 750MG/D5 150 ML IV ONE (22:00)
[2019-08-26] MEDS ORDERED: piperacillin/tazo 3.375gm/50ml 50 ML IV ONE (22:00)
[2019-08-26 22:10] LABS: CLARITY,URINE CLEAR (Clear); COLOR,URINE YELLOW (Yellow); GLUCOSE, URINE NEGATIVE (Neg); KETONES,URINE TRACE mg/dl (Neg); LEUKOCYTE ESTERASE ,URINE NEGATIVE (Neg); NITRITES, URINE NEGATIVE (Neg); OCCULT BLOOD,URINE NEGATIVE (Neg); PROTEIN,URINE TRACE mg/dl (Neg)
[2019-08-26 22:12] LABS: UA COLLECTION TYPE STRAIGHT CATH
[2019-08-26 22:16] LABS: BACTERIA,URINE NONE SEEN /HPF (Neg); RBC,URINE NONE SEEN /HPF (0-2); SQUAMOUS EPITHELIAL CELL,UR MODERATE /LPF (FEW); WBC,URINE 0-4 /HPF (0-4)
[2019-08-26] MEDS ORDERED: acetaminophen 325mg tablet PO PRN (23:50)
[2019-08-26] MEDS ORDERED: potassium CL 10mEq/100ml bag 100 ML IV PRN (23:50)
[2019-08-26] MEDS ORDERED: ondansetron/PF 4mg/2ml inj IV PRN (23:50)
[2019-08-26] MEDS ORDERED: mag hydrox/Alum hydrox/simeth 30ml oral suspension PO PRN (23:50)
[2019-08-27 02:00] VITALS: BP 135/117
[2019-08-27] MEDS: normal saline 1000ml 1,000 ML IV SCH ×2 (02:14→12:22)
[2019-08-27] MEDS: potassium Cl 20 mEq SR tablet PO PRN ×3 (02:15→23:54)
[2019-08-27] MEDS ORDERED: HYDROcodone/acetaminophen 5mg/325mg tablet PO PRN (02:45)
--- NOTE | 2019-08-27 04:19 | NUR ---
Tried to DART patient with past records. Medication orders were in chart, but last time she took meds was not. Unable to find vaccination, social worker masters, malnutrition etc.... day shift will have to call facility for these answers.
[2019-08-27 06:00] VITALS: BP 167/59
--- NOTE | 2019-08-27 06:02 | NUR ---
Problems reprioritized. Patient report given, questions answered & plan of care reviewed with SANTINO Kerr. Addendum: 08/27/19 at 1948 by Charlene Baer RN notified Cirilo that I gave 1 dose of K+ at 2AM.
--- NOTE | 2019-08-27 06:37 | NUR ---
Patient in room ORTHO 4008. I have received report from SANTINO Chang and had the opportunity to ask questions and assume patient care.
[2019-08-27] MEDS: CefTRIAXone/D5W-Rocephin 1gm 50 ML IV SCH (07:15)
[2019-08-27] MEDS: heparin, porcine 5000 units/ml vial SQ SCH ×2 (07:16→19:42)
[2019-08-27] MEDS: losartan 50mg tablet PO SCH (07:25)
[2019-08-27] MEDS: amLODIPine 5mg tablet PO SCH (07:25)
[2019-08-27] MEDS: pantoprazole 40mg Tablet.DR PO SCH (07:25)
[2019-08-27] MEDS: docusate sod 100mg capsule PO SCH (07:28)
[2019-08-27] MEDS: venlafaxine XR 75mg capsule (Q24H) PO SCH (07:28)
--- NOTE | 2019-08-27 07:29 | NUR ---
Unable to swallow the Effexor and Colace capsules even with apple sauce.
[2019-08-27] MEDS ORDERED: furosemide 10 MG/1 ML 10ml inj IV SCH (08:00)
[2019-08-27] MEDS: K and/or MAG REPLACEMENT MC SCH ×2 (08:00→18:39)
[2019-08-27 09:37] VITALS: BP 162/62
--- NOTE | 2019-08-27 16:37 | NUR ---
PAGER ID: [phone] MESSAGE: [id number] Meli Montes: BP 177/61. SANTINO Kerr Ext [phone]
[2019-08-27 18:00] VITALS: BP_SYST 177; BP_SYST 198; BP_DIAS 61; BP_DIAS 74
--- NOTE | 2019-08-27 18:30 | NUR ---
Patient in room ORTHO 4008. I have received report from SANTINO Kerr and had the opportunity to ask questions and assume patient care. noticed that patient had not had any K+ replacement. will continue protocol that was started at 02am
--- NOTE | 2019-08-27 18:34 | NUR ---
Problems reprioritized. Patient report given, questions answered & plan of care reviewed with SANTINO Chang.
[2019-08-27] MEDS: risperiDONE 0.5mg tablet PO SCH (19:42)
--- NOTE | 2019-08-28 00:17 | NUR ---
called lab to inquire about CBC and BMP that was ordered from 08/26. They stated that patient refused lab draw.
[2019-08-28 02:00] VITALS: BP 148/67
[2019-08-28 06:00] VITALS: BP 172/69
--- NOTE | 2019-08-28 06:10 | NUR ---
Patient in room ORTHO 4008. I have received report from SANTINO Chang and had the opportunity to ask questions and assume patient care.
[2019-08-28 06:21] LABS: ALANINE AMINOTRANSFERASE 22 U/L (12-78); ALBUMIN 2.5 G/DL (3.4-5.0); ALBUMIN/GLOBULIN RATIO 0.7 (1.1-1.5); ALKALINE PHOSPHATASE 79 IU/L (46-116); ANION GAP 8 (8-16); ASPARTATE AMINO TRANSFERASE 20 U/L (10-37); BILIRUBIN,TOTAL 0.9 MG/DL (0.1-1.0); BLOOD UREA NITROGEN 22 MG/DL (7-18); BUN/CREATININE RATIO 18.3 (6.6-38.0); CALCIUM 10.5 MG/DL (8.5-10.1); CHLORIDE 117 MMOL/L (99-107); GLUCOSE 87 MG/DL (70-104); TOTAL CARBON DIOXIDE 31.3 MMOL/L (24-32); TOTAL PROTEIN 6.1 G/DL (6.4-8.2); eGFR 43 ML/MIN
[2019-08-28 06:22] LABS: SODIUM 156 MMOL/L (135-145)
[2019-08-28 06:23] LABS: POTASSIUM 2.7 MMOL/L (3.5-5.1)
[2019-08-28] MEDS ORDERED: potassium CL 20mEq in D5-1/2NS 1,000 ML IV SCH (06:45)
--- NOTE | 2019-08-28 06:45 | NUR ---
Called critical values of high Na+ and low K+. new order for D51/2NS20K at 100/hr. and to continue electrolyte protocol
--- NOTE | 2019-08-28 06:47 | NUR ---
Problems reprioritized. Patient report given, questions answered & plan of care reviewed with SANTINO Early.
[2019-08-28 08:06] LABS: HEMATOCRIT 32.4 % (35.0-45.0); MEAN CORPUSCULAR HEMOGLOBIN 32.6 PG (27.0-31.0); MEAN CORPUSCULAR VOLUME 95.8 FL (78-98); RED BLOOD COUNT 3.38 X10'6 (4.20-5.60); WHITE BLOOD COUNT 9.4 X10'3 (4.5-11.0)
[2019-08-28 08:07] LABS: BASOPHILS # (AUTO) 0.1 X10'3 (0-0.2); BASOPHILS % (AUTO) 0.9 % (0-1); EOSINOPHILS # (AUTO) 0.1 X10'3 (0-0.9); EOSINOPHILS % (AUTO) 0.6 % (0-6); LYMPHOCYTES # (AUTO) 0.6 X10'3 (1.1-4.8); LYMPHOCYTES % (AUTO) 6.5 % (21-51); MEAN PLATELET VOLUME 9.2 FL (7.4-10.4); MONOCYTES # (AUTO) 0.9 X10'3 (0-0.9); MONOCYTES % (AUTO) 9.3 % (2-12); NEUTROPHILS # (AUTO) 7.7 X10'3 (1.8-7.7); NEUTROPHILS % (AUTO) 82.7 % (42-75); PLATELET COUNT 363 X10'3 (140-440); RED CELL DISTRIBUTION WIDTH 13.6 % (11.5-14.5)
[2019-08-28] MEDS: K and/or MAG REPLACEMENT MC SCH ×2 (08:10→20:14)
[2019-08-28 10:00] VITALS: BP 164/66
[2019-08-28] MEDS: pantoprazole 40mg Tablet.DR PO SCH (10:22)
[2019-08-28] MEDS: CefTRIAXone/D5W-Rocephin 1gm 50 ML IV SCH (10:22)
[2019-08-28] MEDS: losartan 50mg tablet PO SCH (10:22)
[2019-08-28] MEDS: docusate sod 100mg capsule PO SCH (10:22)
[2019-08-28] MEDS: heparin, porcine 5000 units/ml vial SQ SCH ×2 (10:23→20:17)
[2019-08-28] MEDS: amLODIPine 5mg tablet PO SCH (10:23)
[2019-08-28] MEDS: venlafaxine XR 75mg capsule (Q24H) PO SCH (10:23)
[2019-08-28] MEDS: potassium Cl 20 mEq SR tablet PO PRN ×3 (10:45→20:17)
--- NOTE | 2019-08-28 13:20 | NUR ---
Dr Webber ordered psych eval for psych med eval. Called [facility] & spoke to Aysha whom states psych MD will see pt today & of not today they will notify us. Dr Webber notified.
[2019-08-28] MEDS: dextrose 5%-water 1,000 ML IV SCH (14:56)
--- NOTE | 2019-08-28 15:37 | NUR ---
Dr Webber notified pt has only voided x1 today & bladder [id number].
[2019-08-28 18:00] VITALS: BP 140/56
--- NOTE | 2019-08-28 18:40 | NUR ---
Problems reprioritized. Patient report given, questions answered & plan of care reviewed with SANTINO Calderón.
[2019-08-28] MEDS: magnesium hydroxide 30ml (MOM) UD suspension PO PRN (20:16)
[2019-08-28] MEDS: lactobacillus rhamnosus 10,000 MMU CELLS/CAPSULE PO SCH (20:17)
[2019-08-28] MEDS: risperiDONE 0.5mg tablet PO SCH (20:17)
[2019-08-28 22:00] VITALS: BP 156/61
[2019-08-28] MEDS: potassium CL 10mEq/100ml bag 100 ML IV PRN (22:36)
[2019-08-29] MEDS: potassium CL 10mEq/100ml bag 100 ML IV PRN ×5 (00:04→04:31)
[2019-08-29] MEDS: dextrose 5%-water 1,000 ML IV SCH ×3 (02:13→22:28)
--- NOTE | 2019-08-29 06:10 | NUR ---
Problems reprioritized. Patient report given, questions answered & plan of care reviewed with SANTINO Aviles.
[2019-08-29 06:45] LABS: BASOPHILS # (AUTO) 0.1 X10'3 (0-0.2); EOSINOPHILS # (AUTO) 0.3 X10'3 (0-0.9); EOSINOPHILS % (AUTO) 2.9 % (0-6); HEMATOCRIT 29.9 % (35.0-45.0); HEMOGLOBIN 10.2 g/dl (12.0-16.0); LYMPHOCYTES # (AUTO) 1.1 X10'3 (1.1-4.8); LYMPHOCYTES % (AUTO) 12.3 % (21-51); MEAN CORPUSCULAR HEMOGLOBIN 32.1 PG (27.0-31.0); MEAN CORPUSCULAR HGB CONC 34.2 g/dL (33.0-36.5); MEAN CORPUSCULAR VOLUME 93.9 FL (78-98); MONOCYTES # (AUTO) 1.1 X10'3 (0-0.9); MONOCYTES % (AUTO) 11.4 % (2-12); NEUTROPHILS # (AUTO) 6.8 X10'3 (1.8-7.7); NEUTROPHILS % (AUTO) 72.4 % (42-75); PLATELET COUNT 315 X10'3 (140-440); RED BLOOD COUNT 3.19 X10'6 (4.20-5.60); RED CELL DISTRIBUTION WIDTH 13.6 % (11.5-14.5); WHITE BLOOD COUNT 9.3 X10'3 (4.5-11.0)
[2019-08-29 06:57] LABS: ALANINE AMINOTRANSFERASE 47 U/L (12-78); ALBUMIN 2.3 G/DL (3.4-5.0); ALBUMIN/GLOBULIN RATIO 0.7 (1.1-1.5); ALKALINE PHOSPHATASE 77 IU/L (46-116); ANION GAP 2 (8-16); ASPARTATE AMINO TRANSFERASE 53 U/L (10-37); BILIRUBIN,TOTAL 0.8 MG/DL (0.1-1.0); BLOOD UREA NITROGEN 16 MG/DL (7-18); BUN/CREATININE RATIO 17.2 (6.6-38.0); CALCIUM 9.6 MG/DL (8.5-10.1); CHLORIDE 112 MMOL/L (99-107); CREATININE 0.93 MG/DL (0.40-0.90); GLUCOSE 117 MG/DL (70-104); POTASSIUM 4.9 MMOL/L (3.5-5.1); SODIUM 143 MMOL/L (135-145); TOTAL CARBON DIOXIDE 29.2 MMOL/L (24-32); TOTAL PROTEIN 5.5 G/DL (6.4-8.2); eGFR 57 ML/MIN
[2019-08-29] MEDS: K and/or MAG REPLACEMENT MC SCH ×2 (08:00→20:00)
[2019-08-29] MEDS: lactobacillus rhamnosus 10,000 MMU CELLS/CAPSULE PO SCH ×2 (08:00→20:43)
[2019-08-29] MEDS: amLODIPine 5mg tablet PO SCH (08:13)
[2019-08-29] MEDS: CefTRIAXone/D5W-Rocephin 1gm 50 ML IV SCH (08:13)
[2019-08-29] MEDS: pantoprazole 40mg Tablet.DR PO SCH (08:13)
[2019-08-29] MEDS: venlafaxine XR 75mg capsule (Q24H) PO SCH (08:13)
[2019-08-29] MEDS: losartan 50mg tablet PO SCH (08:14)
[2019-08-29] MEDS: docusate sod 100mg capsule PO SCH (08:14)
[2019-08-29] MEDS: heparin, porcine 5000 units/ml vial SQ SCH ×2 (08:15→20:44)
[2019-08-29 10:00] VITALS: BP 118/52
[2019-08-29] MEDS: magnesium hydroxide 30ml (MOM) UD suspension PO PRN (14:48)
[2019-08-29 18:00] VITALS: BP 135/55
--- NOTE | 2019-08-29 18:16 | NUR ---
Problems reprioritized. Patient report given, questions answered & plan of care reviewed with Luzmaria.
[2019-08-29] MEDS: risperiDONE 0.5mg tablet PO SCH (20:44)
[2019-08-29 22:00] VITALS: BP 110/53
[2019-08-30 05:56] LABS: BASOPHILS # (AUTO) 0.1 X10'3 (0-0.2); BASOPHILS % (AUTO) 0.9 % (0-1); EOSINOPHILS # (AUTO) 0.3 X10'3 (0-0.9); EOSINOPHILS % (AUTO) 4.5 % (0-6); HEMATOCRIT 31.3 % (35.0-45.0); HEMOGLOBIN 10.5 g/dl (12.0-16.0); LYMPHOCYTES % (AUTO) 15.2 % (21-51); MEAN CORPUSCULAR HEMOGLOBIN 31.9 PG (27.0-31.0); MEAN CORPUSCULAR HGB CONC 33.6 g/dL (33.0-36.5); MEAN CORPUSCULAR VOLUME 94.9 FL (78-98); MEAN PLATELET VOLUME 8.9 FL (7.4-10.4); MONOCYTES # (AUTO) 0.7 X10'3 (0-0.9); MONOCYTES % (AUTO) 10.7 % (2-12); NEUTROPHILS # (AUTO) 4.5 X10'3 (1.8-7.7); NEUTROPHILS % (AUTO) 68.7 % (42-75); PLATELET COUNT 308 X10'3 (140-440); RED CELL DISTRIBUTION WIDTH 13.9 % (11.5-14.5); WHITE BLOOD COUNT 6.6 X10'3 (4.5-11.0)
[2019-08-30 06:09] LABS: ALANINE AMINOTRANSFERASE 70 U/L (12-78); ALBUMIN 2.3 G/DL (3.4-5.0); ALBUMIN/GLOBULIN RATIO 0.7 (1.1-1.5); ALKALINE PHOSPHATASE 78 IU/L (46-116); ANION GAP 4 (8-16); ASPARTATE AMINO TRANSFERASE 63 U/L (10-37); BILIRUBIN,TOTAL 0.5 MG/DL (0.1-1.0); BLOOD UREA NITROGEN 12 MG/DL (7-18); BUN/CREATININE RATIO 12.1 (6.6-38.0); CALCIUM 10.1 MG/DL (8.5-10.1); CHLORIDE 110 MMOL/L (99-107); CREATININE 0.99 MG/DL (0.40-0.90); GLUCOSE 113 MG/DL (70-104); POTASSIUM 4.2 MMOL/L (3.5-5.1); SODIUM 144 MMOL/L (135-145); TOTAL CARBON DIOXIDE 29.9 MMOL/L (24-32); TOTAL PROTEIN 5.5 G/DL (6.4-8.2); eGFR 53 ML/MIN
[2019-08-30] MEDS: dextrose 5%-water 1,000 ML IV SCH ×3 (06:40→20:29)
[2019-08-30 06:49] VITALS: BP 140/54
--- NOTE | 2019-08-30 06:56 | NUR ---
Received report from dayne DE
[2019-08-30] MEDS: K and/or MAG REPLACEMENT MC SCH ×2 (08:00→20:28)
[2019-08-30] MEDS: docusate sod 100mg capsule PO SCH (08:16)
[2019-08-30] MEDS: lactobacillus rhamnosus 10,000 MMU CELLS/CAPSULE PO SCH ×2 (08:16→20:28)
[2019-08-30] MEDS: CefTRIAXone/D5W-Rocephin 1gm 50 ML IV SCH (08:16)
[2019-08-30] MEDS: pantoprazole 40mg Tablet.DR PO SCH (08:16)
[2019-08-30] MEDS: amLODIPine 5mg tablet PO SCH (08:16)
[2019-08-30] MEDS: losartan 50mg tablet PO SCH (08:17)
[2019-08-30] MEDS: venlafaxine XR 75mg capsule (Q24H) PO SCH (08:17)
[2019-08-30] MEDS: heparin, porcine 5000 units/ml vial SQ SCH ×2 (08:19→20:28)
[2019-08-30] MEDS ORDERED: mineral oil 133ml enema RC PRN (09:50)
[2019-08-30 18:00] VITALS: BP 132/56
[2019-08-30] MEDS: risperiDONE 0.5mg tablet PO SCH (20:28)
[2019-08-30 22:00] VITALS: BP 115/47
--- NOTE | 2019-08-30 22:40 | NUR ---
Granddaughter Francois DE (at [facility]) called asking if pt ate her dinner and if there are any results from a psych eval. Gave info to pts nurse and informed her 1/3 of dinner was consumed & that she would need to speak with in the day. She mentioned she spoke with Dr. Green in morning and will call back tomorrow to get update.
[2019-08-31] MEDS: dextrose 5%-water 1,000 ML IV SCH ×2 (03:00→06:01)
[2019-08-31 06:11] LABS: BASOPHILS # (AUTO) 0.1 X10'3 (0-0.2); EOSINOPHILS # (AUTO) 0.2 X10'3 (0-0.9); EOSINOPHILS % (AUTO) 3.8 % (0-6); HEMATOCRIT 32.8 % (35.0-45.0); HEMOGLOBIN 10.9 g/dl (12.0-16.0); LYMPHOCYTES # (AUTO) 0.8 X10'3 (1.1-4.8); LYMPHOCYTES % (AUTO) 13.3 % (21-51); MEAN CORPUSCULAR HEMOGLOBIN 31.6 PG (27.0-31.0); MEAN CORPUSCULAR HGB CONC 33.1 g/dL (33.0-36.5); MEAN CORPUSCULAR VOLUME 95.4 FL (78-98); MEAN PLATELET VOLUME 9.3 FL (7.4-10.4); MONOCYTES # (AUTO) 0.5 X10'3 (0-0.9); MONOCYTES % (AUTO) 8.2 % (2-12); NEUTROPHILS # (AUTO) 4.6 X10'3 (1.8-7.7); NEUTROPHILS % (AUTO) 73.7 % (42-75); PLATELET COUNT 321 X10'3 (140-440); RED BLOOD COUNT 3.44 X10'6 (4.20-5.60); RED CELL DISTRIBUTION WIDTH 14.2 % (11.5-14.5); WHITE BLOOD COUNT 6.2 X10'3 (4.5-11.0)
[2019-08-31 06:21] LABS: ALANINE AMINOTRANSFERASE 85 U/L (12-78); ALBUMIN 2.3 G/DL (3.4-5.0); ALBUMIN/GLOBULIN RATIO 0.7 (1.1-1.5); ALKALINE PHOSPHATASE 88 IU/L (46-116); ANION GAP 4 (8-16); ASPARTATE AMINO TRANSFERASE 63 U/L (10-37); BILIRUBIN,TOTAL 0.4 MG/DL (0.1-1.0); BLOOD UREA NITROGEN 9 MG/DL (7-18); BUN/CREATININE RATIO 9.3 (6.6-38.0); CALCIUM 9.7 MG/DL (8.5-10.1); CHLORIDE 110 MMOL/L (99-107); CREATININE 0.97 MG/DL (0.40-0.90); GLUCOSE 119 MG/DL (70-104); POTASSIUM 3.9 MMOL/L (3.5-5.1); SODIUM 144 MMOL/L (135-145); TOTAL CARBON DIOXIDE 29.6 MMOL/L (24-32); TOTAL PROTEIN 5.5 G/DL (6.4-8.2); eGFR 55 ML/MIN
--- NOTE | 2019-08-31 06:25 | NUR ---
Received report from Charlene DE
[2019-08-31 06:53] VITALS: BP 129/54
[2019-08-31] MEDS: CefTRIAXone/D5W-Rocephin 1gm 50 ML IV SCH (07:43)
[2019-08-31] MEDS: docusate sod 100mg capsule PO SCH (07:43)
[2019-08-31] MEDS: pantoprazole 40mg Tablet.DR PO SCH (07:43)
[2019-08-31] MEDS: lactobacillus rhamnosus 10,000 MMU CELLS/CAPSULE PO SCH ×2 (07:43→20:42)
[2019-08-31] MEDS: losartan 50mg tablet PO SCH (07:43)
[2019-08-31] MEDS: venlafaxine XR 75mg capsule (Q24H) PO SCH (07:43)
[2019-08-31] MEDS: amLODIPine 5mg tablet PO SCH (07:43)
[2019-08-31] MEDS: heparin, porcine 5000 units/ml vial SQ SCH ×2 (07:45→20:43)
[2019-08-31] MEDS: K and/or MAG REPLACEMENT MC SCH ×2 (08:00→20:41)
[2019-08-31 10:49] VITALS: BP 115/34
--- NOTE | 2019-08-31 12:02 | NUR ---
Initial: Pt admit w/ hypercalcemia secondary to [place], possible aspiration PNA, FTT, depression, and ALOC AOx1. Hx dementia. Placed on regular/pureed diet; RD recommended CONDENSER WINDER BSS given DX and hx including prior esophageal obstruction w/ catatonic disorder as well. PO 0-25%/refusing meals DX hypernatremia r/t poor PO now receiving dextrose per MD. LBM 08/29 receiving routine colace. No edema though prior R hip surgical site present from ORIF 08/16 and coccyx STDI pressure ulcer per WOC. Would benefit from ONS though given poor PO intake w/ ALOC may not be appropriate; will monitor for CONDENSER WINDER recs for appropriate nutrition intervention/support needs. Rec: 1. advance diet pending CONDENSER WINDER BSS recs as medically indicated to regular; encourage PO 2. monitor for ONS needs pending CONDENSER WINDER recs 3. monitor need for alternative nutrition pending CONDENSER WINDER recs; poor PO hx and hx dementia w/ catatonic disorder AOx1 4. routine bowel care 5. scaled weekly wts Addendum: 08/31/19 at [address] Amended: Links added.
[2019-08-31 18:00] VITALS: BP 109/50
--- NOTE | 2019-08-31 18:12 | NUR ---
Report given to Charlene DE
[2019-08-31] MEDS: risperiDONE 0.5mg tablet PO SCH (20:43)
[2019-08-31 22:00] VITALS: BP 101/40
[2019-09-01 06:00] VITALS: BP 111/40
--- NOTE | 2019-09-01 06:50 | NUR ---
Patient in room ORTHO 4008. I have received report from Charlene Cummings RN and had the opportunity to ask questions and assume patient care.
[2019-09-01] MEDS: K and/or MAG REPLACEMENT MC SCH (07:09)
[2019-09-01] MEDS ORDERED: venlafaxine XR 75mg capsule (Q24H) PO SCH (08:00)
[2019-09-01] MEDS ORDERED: lamoTRIgine 25mg tablet PO SCH (08:00)
[2019-09-01] MEDS ORDERED: venlafaxine XR 37.5mg cap (Q24H) PO SCH (08:00)
[2019-09-01] MEDS: losartan 50mg tablet PO SCH (08:00)
[2019-09-01] MEDS: dextrose 5%-water 1,000 ML IV SCH (08:40)
[2019-09-01] MEDS: pantoprazole 40mg Tablet.DR PO SCH (09:44)
[2019-09-01] MEDS: docusate sod 100mg capsule PO SCH (09:45)
[2019-09-01] MEDS: amLODIPine 5mg tablet PO SCH (09:51)
[2019-09-01] MEDS: lactobacillus rhamnosus 10,000 MMU CELLS/CAPSULE PO SCH (09:52)
[2019-09-01] MEDS: CefTRIAXone/D5W-Rocephin 1gm 50 ML IV SCH (09:53)
[2019-09-01 10:00] VITALS: BP 115/45
[2019-09-01] MEDS: heparin, porcine 5000 units/ml vial SQ SCH (10:00)
--- NOTE | 2019-09-01 12:25 | NUR ---
Called report to Francois at [facility], assisted pt in dressing, iv was removed canula intact, no complications. [facility] personnel wheeled pt down to [place] in stable condition.
== END 2019-09-01 12:21 | DRG 178 ==
LOC: ER 20:34 → ED HOLD 23:46 → ORTHO 4S 08-27 01:51
PROVIDERS: ADMIT Internal Medicine; ATTEND Internal Medicine
DX: J69.0 Pneumonitis due to inhalation of food and vomit (principal); E87.0 Hyperosmolality and hypernatremia; M81.0 Age-related osteoporosis without current pathological fracture; D63.8 Anemia in other chronic diseases classified elsewhere; F32.9 Major depressive disorder, single episode, unspecified; E83.52 Hypercalcemia; E78.5 Hyperlipidemia, unspecified; E87.6 Hypokalemia; I10 Essential (primary) hypertension; R62.7 Adult failure to thrive; Z66 Do not resuscitate; Z68.24 Body mass index [BMI] 24.0-24.9, adult
CPT/HCPCS: 36415; 71045; 80053; 81001; 82948; 83690; 84132; 84145; 85025; 87081; 92508; 92616; 97116; 97162; 97530; 97535; 99285; G0378; J0696; J1644; J1940; J1956; J2543; J3480; J7030; J7070